=== PATIENT | female | born 1990 | race Two or more races ===

== ENCOUNTER 2017-03-30 20:08 | Emergency (ER) | payer OTHER ==
[~2017-03-30] VITALS: Ht 149.9 cm; Wt 57.6 kg
[2017-03-30] MEDS ORDERED: METFORMIN HCL500 MG (20:22)
== END 2017-03-30 22:44 | disposition home or self-care (01) ==
LOC: ER 20:08
DX: N39.0 Urinary tract infection, site not specified (principal)